=== PATIENT | male | born 1995 | race Caucasian/White ===

== ENCOUNTER 2019-04-01 18:55 | Emergency (ER) | payer OTHER, BC ==
[~2019-04-01] VITALS: Ht 177.8 cm; Wt 71.0 kg
[~2019-04-01 18:55] MED LIST: FLO0.4C PO; HYDR1TAB PO; IBUP-1984 PO; NO HOME MEDS
[2019-04-01 18:59] VITALS: BP 122/84
[2019-04-01] MEDS ORDERED: HYDROcodone/acetaminophen 5mg/325mg tablet PO ONE (20:40)
[2019-04-01] MEDS ORDERED: CLOT30CR TOP (21:23)
[2019-04-01] MEDS ORDERED: CYCL-1 PO (21:39)
[2019-04-01] MEDS ORDERED: LIDO700A32 TOP (21:39)
[2019-04-01] MEDS ORDERED: HYDR-3965 PO (21:39)
== END 2019-04-01 21:57 | disposition home or self-care (01) ==
LOC: ER 18:55
DX: M54.2 Cervicalgia (principal); M25.511 Pain in right shoulder; M25.512 Pain in left shoulder; N20.0 Calculus of kidney; M54.6 Pain in thoracic spine; F12.10 Cannabis abuse, uncomplicated; F15.10 Other stimulant abuse, uncomplicated; V43.53XA Car driver injured in collision with pick-up truck in traffic accident, initial encounter; Y93.89 Activity, other specified; Y92.488 Other paved roadways as the place of occurrence of the external cause; Y99.8 Other external cause status
CPT/HCPCS: 70450; 71045; 72125; 72128; 73030; 99284

== ENCOUNTER 2020-01-03 23:27 | Inpatient (IN) | payer BC, OTHER ==
[~2020-01-03] VITALS: Ht 177.8 cm; Wt 75.0 kg
[~2020-01-03 23:27] MED LIST changes: +CLOT30CR TOP; +CYCL-1 PO; +LIDO700A32 TOP
[2020-01-03] MEDS ORDERED: normal saline 1000ML IV soln IVB ONE (23:35)
[2020-01-03] MEDS ORDERED: ondansetron/PF 4mg/2ml inj IV ONE (23:35)
[2020-01-04 00:03] LABS: BASOPHILS % (AUTO) 0.4 % (0-1); EOSINOPHILS % (AUTO) 0.3 % (0-6); HEMATOCRIT 47.7 % (42.0-52.0); HEMOGLOBIN 16.5 g/dl (14.0-17.9); LYMPHOCYTES # (AUTO) 1.4 X10'3 (1.1-4.8); LYMPHOCYTES % (AUTO) 12.9 % (21-51); MEAN CORPUSCULAR HEMOGLOBIN 31.7 PG (27.0-31.0); MEAN CORPUSCULAR HGB CONC 34.6 g/dL (33.0-36.5); MEAN CORPUSCULAR VOLUME 91.7 FL (78-98); MEAN PLATELET VOLUME 7.9 FL (7.4-10.4); MONOCYTES # (AUTO) 0.6 X10'3 (0-0.9); MONOCYTES % (AUTO) 5.6 % (2-12); NEUTROPHILS # (AUTO) 8.5 X10'3 (1.8-7.7); NEUTROPHILS % (AUTO) 80.8 % (42-75); PLATELET COUNT 264 X10'3 (140-440); RED CELL DISTRIBUTION WIDTH 12.9 % (11.5-14.5); WHITE BLOOD COUNT 10.5 X10'3 (4.5-11.0)
[2020-01-04] MEDS: morphine 4 MG/ML inj SYRINge IV PRN ×2 (00:07→00:47)
[2020-01-04 00:08] LABS: ALANINE AMINOTRANSFERASE 24 U/L (12-78); ALBUMIN 4.5 G/DL (3.4-5.0); ALBUMIN/GLOBULIN RATIO 1.6 (1.1-1.5); ALKALINE PHOSPHATASE 70 IU/L (46-116); ANION GAP 8 (8-16); ASPARTATE AMINO TRANSFERASE 19 U/L (10-37); BILIRUBIN,TOTAL 1.7 MG/DL (0.1-1.0); BLOOD UREA NITROGEN 8 MG/DL (7-18); BUN/CREATININE RATIO 5.8 (5.4-32.0); CALCIUM 9.5 MG/DL (8.5-10.1); CHLORIDE 103 MMOL/L (99-107); CREATININE 1.37 MG/DL (0.60-1.10); GLUCOSE 146 MG/DL (70-104); LIPASE 85 U/L (73-393); POTASSIUM 3.6 MMOL/L (3.5-5.1); SODIUM 139 MMOL/L (135-145); TOTAL CARBON DIOXIDE 28.4 MMOL/L (24-32); TOTAL PROTEIN 7.4 G/DL (6.4-8.2); eGFR 63 ML/MIN
[2020-01-04] MEDS ORDERED: ondansetron/PF 4mg/2ml inj IV ONE (01:20)
[2020-01-04] MEDS ORDERED: tamsulosin 0.4mg capsule PO STA (01:59)
[2020-01-04] MEDS ORDERED: normal saline 1000ml 1,000 ML IV SCH (02:26)
[2020-01-04] MEDS ORDERED: acetaminophen 325mg tablet PO PRN (02:30)
[2020-01-04] MEDS ORDERED: magnesium 4gm in 100ml NS 100 ML IV PRN (02:30)
[2020-01-04] MEDS ORDERED: potassium CL 10mEq/100ml bag 100 ML IV PRN ×2 (02:30)
[2020-01-04] MEDS ORDERED: magnesium hydroxide 30ml (MOM) UD suspension PO PRN (02:30)
[2020-01-04] MEDS ORDERED: magnesium 2GM in 50ml NS 50 ML IV PRN (02:30)
[2020-01-04] MEDS ORDERED: potassium Cl 20 mEq SR tablet PO PRN ×2 (02:30)
[2020-01-04] MEDS ORDERED: mag hydrox/Alum hydrox/simeth 30ml oral suspension PO PRN (02:30)
[2020-01-04] MEDS ORDERED: ondansetron/PF 4mg/2ml inj IV PRN (02:30)
[2020-01-04] MEDS ORDERED: magnesium Cl slow-release 64mg tablet PO PRN (02:30)
[2020-01-04] MEDS ORDERED: morphine 2 MG/ML inj. syringe IV PRN (02:30)
[2020-01-04] MEDS ORDERED: proCHLORperazine 10 MG/2 ml inj IV PRN (03:15)
[2020-01-04 04:33] VITALS: BP 117/87
--- NOTE | 2020-01-04 06:11 | NUR ---
Patient in room [facility]. I have received report from pravin haines and had the opportunity to ask questions and assume patient care.
--- NOTE | 2020-01-04 06:40 | NUR ---
Problems reprioritized. Patient report given, questions answered & plan of care reviewed with SAVITA. Addendum: 01/04/20 at 0640 by William Wilkinson RN Amended: Links added.
--- NOTE | 2020-01-04 06:50 | NUR ---
Patient in room [facility]. I have received report from Jimmy NIELSON and had the opportunity to ask questions and assume patient care.
[2020-01-04 08:00] VITALS: BP 108/61
[2020-01-04] MEDS ORDERED: K and/or MAG REPLACEMENT MC SCH (08:00)
[2020-01-04] MEDS ORDERED: LORazepam 2 mg/ml vial IV PRN (09:55)
[2020-01-04] MEDS ORDERED: LORazepam 2 mg/ml vial IV ONE (10:15)
--- NOTE | 2020-01-04 12:00 | NUR ---
Patient in room [facility]. I have received report from Ginny Hernandez and had the opportunity to ask questions and assume patient care.
--- NOTE | 2020-01-04 12:10 | NUR ---
Student documentation: I have reviewed all interventions, assessments performed and documented by Ginny CAO
--- NOTE | 2020-01-04 13:20 | NUR ---
Patient was uncoorperative to check pupils and did not respond when asked r/t to ignoring commmands. Addendum: 01/04/20 at 1338 by Lisa REYES Amended: Links added.
--- NOTE | 2020-01-04 13:27 | NUR ---
Patient was uncooperative and would not sit up nor roll over to auscultate postier long sounds. Addendum: 01/04/20 at 1338 by Lisa REYES Amended: Links added.
--- NOTE | 2020-01-04 13:31 | NUR ---
Patient was awake but refused to answer when asked about bowel patterns. Addendum: 01/04/20 at 1338 by Lisa REYES Amended: Links added.
--- NOTE | 2020-01-04 14:22 | NUR ---
patient appeared very rude and uncooperative with care using many swear words . Seen by Dr Bush and Dr Su, chose out of three options presented by Dr uS to be seen as outpatient. patient does not appear to be in pain, but was medicated this am x1 with Ativan for severe anxiety, see EMAR. Mother present through the night and left 1300hrs. patient observed to be extremely rude to mother , mother jonathan in tears repeatedly. Patient encouraged to speak more appropriately to medical personnel, and to family. patient non compliant .Dc home via private car with family member in stable condition.
--- NOTE | 2020-01-04 14:49 | NUR ---
All discharge instructions were given to patient by Dr. Su and Dr. Bush. Patient was stable and discharged home with family member. Addendum: 01/04/20 at 1452 by Lisa REYES Amended: Links added.
== END 2020-01-04 14:20 | disposition home or self-care (01) | DRG 694 ==
LOC: ER 23:27 → SUR 3N 01-04 02:26 → UNDOADMIN 01-04 02:31 → SUR 3N 01-04 03:00 → CMPBEDREQ 01-04 03:15 → UNDODISIN 01-04 14:20
PROVIDERS: ADMIT Family Medicine; ATTEND Family Medicine
DX: N13.2 Hydronephrosis with renal and ureteral calculous obstruction (principal); F12.90 Cannabis use, unspecified, uncomplicated; N17.9 Acute kidney failure, unspecified; F15.90 Other stimulant use, unspecified, uncomplicated; F17.210 Nicotine dependence, cigarettes, uncomplicated; F41.9 Anxiety disorder, unspecified; R00.0 Tachycardia, unspecified
CPT/HCPCS: 36415; 74018; 74176; 80053; 83690; 85025; 96374; 96375; 96376; 99285; G0378; J2060; J2270; J2405; J7030

== ENCOUNTER 2020-01-27 14:13 | Emergency (ER) | payer BC ==
[~2020-01-27] VITALS: Ht 177.8 cm; Wt 74.0 kg
[2020-01-27] MEDS ORDERED: normal saline 1000ML IV soln IVB ONE ×2 (14:30→15:30)
[2020-01-27] MEDS ORDERED: ketorolac trometh. 30mg/ml inj. IV ONE (14:30)
--- NOTE | 2020-01-27 14:35 | NUR ---
Patient aware that we need a urine sample from him. Pt states that he is not able to obtain one at this time.
--- NOTE | 2020-01-27 14:43 | NUR ---
csr technician at bedside.
[2020-01-27 14:46] LABS: BASOPHILS % (AUTO) 0.2 % (0-1); EOSINOPHILS % (AUTO) 0.2 % (0-6); HEMATOCRIT 46.3 % (42.0-52.0); HEMOGLOBIN 15.5 g/dl (14.0-17.9); LYMPHOCYTES # (AUTO) 0.8 X10'3 (1.1-4.8); LYMPHOCYTES % (AUTO) 6.5 % (21-51); MEAN CORPUSCULAR HEMOGLOBIN 30.9 PG (27.0-31.0); MEAN CORPUSCULAR HGB CONC 33.4 g/dL (33.0-36.5); MEAN CORPUSCULAR VOLUME 92.4 FL (78-98); MEAN PLATELET VOLUME 7.8 FL (7.4-10.4); MONOCYTES # (AUTO) 0.5 X10'3 (0-0.9); MONOCYTES % (AUTO) 4.2 % (2-12); NEUTROPHILS # (AUTO) 11.1 X10'3 (1.8-7.7); NEUTROPHILS % (AUTO) 88.9 % (42-75); PLATELET COUNT 266 X10'3 (140-440); RED BLOOD COUNT 5.01 X10'6 (4.70-6.10); WHITE BLOOD COUNT 12.5 X10'3 (4.5-11.0)
[2020-01-27] MEDS ORDERED: morphine 4 MG/ML inj SYRINge IV ONE (14:50)
[2020-01-27] MEDS ORDERED: NAPR-56 PO (14:51)
[2020-01-27] MEDS ORDERED: HYDR-4353 PO (14:51)
[2020-01-27] MEDS ORDERED: ondansetron/PF 4mg/2ml inj IV ONE (15:05)
--- NOTE | 2020-01-27 15:10 | NUR ---
relieving RN for break, pt is resting quietly on bed, has been medicated per MD order
[2020-01-27 15:20] LABS: ALANINE AMINOTRANSFERASE 41 U/L (12-78); ALBUMIN 4.1 G/DL (3.4-5.0); ALBUMIN/GLOBULIN RATIO 1.5 (1.1-1.5); ALKALINE PHOSPHATASE 72 IU/L (46-116); ANION GAP 5 (8-16); ASPARTATE AMINO TRANSFERASE 27 U/L (10-37); BILIRUBIN,TOTAL 0.8 MG/DL (0.1-1.0); BLOOD UREA NITROGEN 12 MG/DL (7-18); BUN/CREATININE RATIO 9.8 (5.4-32.0); CHLORIDE 105 MMOL/L (99-107); CREATININE 1.23 MG/DL (0.60-1.10); GLUCOSE 140 MG/DL (70-104); POTASSIUM 4.2 MMOL/L (3.5-5.1); SODIUM 140 MMOL/L (135-145); TOTAL CARBON DIOXIDE 30.3 MMOL/L (24-32); TOTAL PROTEIN 6.9 G/DL (6.4-8.2); eGFR 72 ML/MIN
--- NOTE | 2020-01-27 16:05 | NUR ---
Pt still unable to obtain urine sample. Pt has urinal at bedside.
--- NOTE | 2020-01-27 16:30 | NUR ---
Pt attempted to urinate even though he didn't feel like he needed to. Pt will return to the ED if he is not able to urinate at home.
[2020-01-27 16:35] VITALS: BP 134/70
--- NOTE | 2020-01-27 16:52 | NUR ---
Pt is scheduled to f/u with his PCP this next week and will provide a urine sample at that time. Pt was contacted via telephone by BIN Olivas.
== END 2020-01-27 16:39 | disposition home or self-care (01) ==
LOC: ER 14:14
DX: N20.0 Calculus of kidney (principal); D72.829 Elevated white blood cell count, unspecified; F12.90 Cannabis use, unspecified, uncomplicated; F15.90 Other stimulant use, unspecified, uncomplicated; Z72.89 Other problems related to lifestyle; Z79.899 Other long term (current) drug therapy
CPT/HCPCS: 36415; 76775; 80053; 85025; 96374; 96375; 99284; J1885; J2270; J2405; J7030

== ENCOUNTER 2020-03-09 05:36 | Day surgery (SDC) | payer BC ==
[2020-03-02 15:06] LABS: BASOPHILS % (AUTO) 0.5 % (0-1); EOSINOPHILS # (AUTO) 0.1 X10'3 (0-0.9); EOSINOPHILS % (AUTO) 0.9 % (0-6); LYMPHOCYTES # (AUTO) 1.6 X10'3 (1.1-4.8); MEAN CORPUSCULAR HEMOGLOBIN 30.9 PG (27.0-31.0); MEAN CORPUSCULAR HGB CONC 33.6 g/dL (33.0-36.5); MEAN CORPUSCULAR VOLUME 92.1 FL (78-98); MEAN PLATELET VOLUME 7.8 FL (7.4-10.4); MONOCYTES # (AUTO) 0.3 X10'3 (0-0.9); MONOCYTES % (AUTO) 4.8 % (2-12); NEUTROPHILS # (AUTO) 4.9 X10'3 (1.8-7.7); NEUTROPHILS % (AUTO) 70.8 % (42-75); PRE OP HEMATOCRIT 46.2 % (42.0-52.0); PRE OP HEMOGLOBIN 15.5 g/dL (14.0-17.9); PRE OP PLATELET COUNT 273 X10'3 (140-440); RED BLOOD COUNT 5.02 X10'6 (4.70-6.10); RED CELL DISTRIBUTION WIDTH 12.9 % (11.5-14.5)
[2020-03-02 15:25] LABS: ALBUMIN 4.2 G/DL (3.4-5.0); ALBUMIN/GLOBULIN RATIO 1.5 (1.1-1.5); ALKALINE PHOSPHATASE 77 IU/L (46-116); BLOOD UREA NITROGEN 15 MG/DL (7-18); BUN/CREATININE RATIO 12.6 (5.4-32.0); CALCIUM 9.2 MG/DL (8.5-10.1); CHLORIDE 104 MMOL/L (99-107); CREATININE 1.19 MG/DL (0.60-1.10); PRE OP ALT 26 U/L (30-65); PRE OP ANION GAP 5 (8-16); PRE OP AST 22 U/L (10-37); PRE OP BILIRUB, TOTAL 1.4 MG/DL (0.0-1.0); PRE OP GLUCOSE 95 MG/DL (70-104); PRE OP POTASSIUM 3.6 MMOL/L (3.4-5.1); PRE OP SODIUM 140 MMOL/L (135-145); TOTAL CARBON DIOXIDE 30.8 MMOL/L (24-32); eGFR 74 ML/MIN
[~2020-03-09] VITALS: Ht 177.8 cm; Wt 72.8 kg
[2020-03-09] VITALS (19 sets, daily range): BP systolic 100–145; BP diastolic 59–93
[~2020-03-09 05:36] MED LIST changes: -CLOT30CR TOP; -CYCL-1 PO; -FLO0.4C PO; +GENTAMICIN IV ONE; -HYDR1TAB PO; -IBUP-1984 PO; -LIDO700A32 TOP; +NORMAL SALINE IV ONE; +ampicillin inj 2 GM in normal saline 100ml IV soln 100 ML IV ONE; +famotidine 20mg tablet PO ONE; +ringers solution, lacted 1,000 ML IV SCH
[2020-03-09] MEDS ORDERED: LIDOcaine 1% (10mg/ml) 2ml vial ONE (05:50)
[2020-03-09] MEDS ORDERED: iohexol 300 MG/1 ML 50ml polymer ONE (06:54)
[2020-03-09] MEDS ORDERED: methylene blue (5mg/ml) 50mg/10ml ampul IV ONE (06:54)
[2020-03-09] MEDS: terbinafine cream 30gm TP SCH ×2 (07:05→20:00)
--- NOTE | 2020-03-09 07:05 | NUR ---
LAMISIL CREAM TO BILAT FEET PER DR HULL ORDER. CREAM WOULD NOT SCAN ON EMAR.
[2020-03-09] MEDS ORDERED: midazolam 2 mg/2 ml injection ONE ×2 (07:10→07:23)
[2020-03-09] MEDS ORDERED: fentaNYL /PF 50mcg/ml 5ml ampule ONE (07:10)
[2020-03-09] MEDS ORDERED: rocuronium 10mg/ml inj IV ONE (07:11)
[2020-03-09] MEDS ORDERED: propofol inj 20 ML IV ONE (07:11)
[2020-03-09] MEDS ORDERED: ringers solution, lacted 1,000 ML IV SCH (07:17)
[2020-03-09] MEDS ORDERED: sevoflurane 250ml liquid IH ONE (07:18)
[2020-03-09] MEDS ORDERED: proCHLORperazine 10 MG/2 ml inj IV PRN (07:20)
[2020-03-09] MEDS ORDERED: ondansetron/PF 4mg/2ml inj IV PRN ×2 (07:20→10:30)
[2020-03-09] MEDS ORDERED: meperidine/PF 25mg/ml syringe IV PRN ×2 (07:20)
[2020-03-09] MEDS ORDERED: morphine 2 MG/ML inj. syringe IV PRN (07:20)
[2020-03-09] MEDS ORDERED: dexamethasone sod phosphate 4mg/ml inj. ONE (07:31)
[2020-03-09] MEDS ORDERED: sugammadex 200mg/2ml injection IV ONE (10:08)
--- NOTE | 2020-03-09 10:14 | NUR ---
Received from OR via [email or web address] , accompanied by Anesthesiologist ANJELICA and report given by Anesthesiolgist. PATIENT WITH 20G PIV IN RIGHT HAND. VSS. PAINFUL AND ATTEMPTING TO GET OFF [employer]. CURSING WILDLY AND THRASHING ON [email or web address]. PATIENT MEDICATED FOR PAIN AND NAUSEA. SECURITY CALL FOR SAFETY. Addendum: 03/09/20 at 1041 by Mukesh Cantu RN, RN Amended: Links added.
[2020-03-09] MEDS: meperidine/PF 25mg/ml syringe IV PRN ×2 (10:24→10:33)
[2020-03-09] MEDS ORDERED: CADD PCA waste documentation MC PRN (10:30)
[2020-03-09] MEDS ORDERED: naloxone 0.4 mg/ml inj IV PRN (10:30)
[2020-03-09] MEDS: morphine 4 MG/ML inj SYRINge IV PRN ×2 (10:32→10:44)
[2020-03-09] MEDS: potassium cl 20mEq in 1/2 NS 1,000 ML IV SCH ×2 (10:50→15:17)
[2020-03-09] MEDS: HYDROmorphone/NS 1 mg/ml CADD 50 ML IV SCH ×8 (11:13→22:30)
--- NOTE | 2020-03-09 11:15 | NUR ---
Report received from FABRICATION MACHINE OPERATORMukesh.
--- NOTE | 2020-03-09 11:34 | NUR ---
Dc to floor to room where they were hooked to vitals and RN notified patient has arrived. Bed low, call light within reach, 2-3 rails up, vss, belongings placed in room. Patient has met criteria for transfer to floor. Patient vss. PaTIENT WITH CADD PUMP IN HAND AND REINSTRUCTED ON ITS USE FOR PAIN CONTROL. Transferred via GURNEY TO A BED WHERE HE WAS PASSIVELY TRANSFERED X4 PEOPLE. CARE TURNED OVER TO RN. Addendum: 03/09/20 at 1139 by Mukesh Farrell - NAGA RN Amended: Links added.
[2020-03-09] MEDS: LORazepam 2 mg/ml vial IV PRN (15:17)
--- NOTE | 2020-03-09 18:45 | NUR ---
Problems reprioritized. Patient report given, questions answered & plan of care reviewed with NAGA Bullock & Ayala RN.
--- NOTE | 2020-03-09 19:37 | NUR ---
Patient in room [facility]. I have received report from Radha NIELSON and had the opportunity to ask questions and assume patient care.
[2020-03-10] MEDS: HYDROmorphone/NS 1 mg/ml CADD 50 ML IV SCH ×6 (01:00→11:00)
[2020-03-10] MEDS: LORazepam 2 mg/ml vial IV PRN ×2 (01:34→10:08)
[2020-03-10] MEDS: potassium cl 20mEq in 1/2 NS 1,000 ML IV SCH ×3 (01:48→18:01)
--- NOTE | 2020-03-10 02:30 | NUR ---
administered the pt Ativan. I discussed the Ativan with the pt before i administered the medication. after I administered the ativan, the pt told me that he gets angry when he takes ativan. I told the pt that to tell us before we administer the medication, and that he can refuse the medication. I made a note on the status board as an adverse reaction. I will monitor the pt. pt asked about getting an opioid to help with pain. i explained to the pt that he was on a Dilaudid CADD and he had to push the button. I have explained that the pt must push the CADD button to get pain medication throughout the shift. The pt has been sleeping
[2020-03-10 03:00] VITALS: BP 122/69
--- NOTE | 2020-03-10 03:00 | NUR ---
I checked on the pt and reminded him to use his CADD for Dilaudid. The pt used the CADD button and stated that the ativan "really helped him to relax" and that he was feeling "much better". pt was resting comfortably
[2020-03-10 05:11] LABS: BASOPHILS % (AUTO) 0.2 % (0-1); EOSINOPHILS % (AUTO) 0 % (0-6); HEMATOCRIT 44.3 % (42.0-52.0); HEMOGLOBIN 14.8 g/dl (14.0-17.9); LYMPHOCYTES # (AUTO) 1.1 X10'3 (1.1-4.8); LYMPHOCYTES % (AUTO) 8.8 % (21-51); MEAN CORPUSCULAR HEMOGLOBIN 30.8 PG (27.0-31.0); MEAN CORPUSCULAR HGB CONC 33.3 g/dL (33.0-36.5); MEAN CORPUSCULAR VOLUME 92.5 FL (78-98); MONOCYTES # (AUTO) 0.8 X10'3 (0-0.9); MONOCYTES % (AUTO) 6.5 % (2-12); NEUTROPHILS # (AUTO) 10.7 X10'3 (1.8-7.7); NEUTROPHILS % (AUTO) 84.5 % (42-75); PLATELET COUNT 259 X10'3 (140-440); RED BLOOD COUNT 4.79 X10'6 (4.70-6.10); RED CELL DISTRIBUTION WIDTH 13.1 % (11.5-14.5); WHITE BLOOD COUNT 12.6 X10'3 (4.5-11.0)
[2020-03-10 05:20] LABS: ALBUMIN 3.7 G/DL (3.4-5.0); ANION GAP 7 (8-16); BLOOD UREA NITROGEN 15 MG/DL (7-18); BUN/CREATININE RATIO 11.7 (5.4-32.0); CALCIUM 8.8 MG/DL (8.5-10.1); CHLORIDE 103 MMOL/L (99-107); CREATININE 1.28 MG/DL (0.60-1.10); GLUCOSE 93 MG/DL (70-104); POTASSIUM 4.1 MMOL/L (3.5-5.1); SODIUM 138 MMOL/L (135-145); TOTAL CARBON DIOXIDE 27.8 MMOL/L (24-32); eGFR 68 ML/MIN
--- NOTE | 2020-03-10 06:10 | NUR ---
Patient in room [facility]. I have received report from Ara RN & Ayala RN and had the opportunity to ask questions and assume patient care.
--- NOTE | 2020-03-10 06:29 | NUR ---
Problems reprioritized. Patient report given, questions answered & plan of care reviewed with Radha RN.
[2020-03-10 06:30] VITALS: BP 125/72
[2020-03-10] MEDS: acetaminophen 1,000mg/100ml IV 100 ML IV PRN ×2 (07:02→14:51)
--- NOTE | 2020-03-10 07:04 | NUR ---
Reassessment not done on tylenol 1000mg IV due to administered yesterday not this AM, but observed this AM that med was not scanned in for administration yesterday.
[2020-03-10 11:00] VITALS: BP 113/66
[2020-03-10] MEDS ORDERED: HYDROcodone/acetaminophen 5mg/325mg tablet PO PRN ×2 (11:25)
[2020-03-10] MEDS ORDERED: HYDR-4383 PO (11:39)
[2020-03-10] MEDS ORDERED: CADD PCA waste documentation MC PRN (12:30)
[2020-03-10] MEDS ORDERED: HYDROmorphone 1 mg/ml syringe IV PRN (17:05)
[2020-03-10 18:00] VITALS: BP 132/82
[2020-03-10] MEDS: HYDROcodone/acetaminophen 10/325mg tab PO PRN ×2 (18:01→23:00)
--- NOTE | 2020-03-10 18:55 | NUR ---
Problems reprioritized. Patient report given, questions answered & plan of care reviewed with Yessy Krishnamurthy RN.
--- NOTE | 2020-03-10 18:56 | NUR ---
Patient in room [facility]. I have received report from SHA NIELSON and had the opportunity to ask questions and assume patient care.
[2020-03-11] VITALS: BP 119/79
[2020-03-11] MEDS: potassium cl 20mEq in 1/2 NS 1,000 ML IV SCH (01:22)
--- NOTE | 2020-03-11 06:15 | NUR ---
Patient in room [facility]. I have received report from Yessy Krishnamurthy RN and had the opportunity to ask questions and assume patient care.
[2020-03-11 06:30] VITALS: BP 130/82
--- NOTE | 2020-03-11 06:30 | NUR ---
Problems reprioritized. Patient report given, questions answered & plan of care reviewed with SHA RN.
[2020-03-11] MEDS ORDERED: magnesium hydroxide 30ml (MOM) UD suspension PO ONE (07:25)
[2020-03-11] MEDS: HYDROcodone/acetaminophen 10/325mg tab PO PRN (07:32)
[2020-03-11] MEDS ORDERED: docusate sod 250mg capsule PO SCH (08:00)
--- NOTE | 2020-03-11 10:00 | NUR ---
DC inst provided to pt. IV DC'd, tip intact. All belongings sent w/pt. WC to front lobby.
== END 2020-03-11 10:00 | disposition home or self-care (01) ==
LOC: PAS 05:36 → SUR 3N 10:30 → PAS 03-11 10:00
PROVIDERS: ATTEND Urology
DX: N20.0 Calculus of kidney (principal); F17.210 Nicotine dependence, cigarettes, uncomplicated; Z72.89 Other problems related to lifestyle; F12.90 Cannabis use, unspecified, uncomplicated; J45.909 Unspecified asthma, uncomplicated; Z79.01 Long term (current) use of anticoagulants; Z79.899 Other long term (current) drug therapy; Z80.51 Family history of malignant neoplasm of kidney; Z11.59 Encounter for screening for other viral diseases
CPT/HCPCS: 36415; 50080; 71045; 71046; 80048; 80053; 85025; 85610; 85730; 86885; 86900; 86901; 87635; 93005; C1729; C1758; C1769; C1894; C2617; C2628; C9399; J0131; J0290; J1100; J1580; J2001; J2060; J2175; J2250; J2270; J2405; J2704; J3010; J7030; J7120; Q9967; Q9968; 49405; A4338; A4355; A4357; A4402; A4618; A6449; A7000; G0378; J3480

== ENCOUNTER 2021-01-03 06:35 | Emergency (ER) | payer BC, OTHER ==
[~2021-01-03] VITALS: Ht 177.8 cm; Wt 71.3 kg
[~2021-01-03 06:35] MED LIST changes: -GENTAMICIN IV ONE; +HYDR-4383 PO; -NORMAL SALINE IV ONE; -ampicillin inj 2 GM in normal saline 100ml IV soln 100 ML IV ONE; -famotidine 20mg tablet PO ONE; -ringers solution, lacted 1,000 ML IV SCH
[2021-01-03] MEDS ORDERED: ondansetron/PF 4mg/2ml inj IV ONE (06:50)
[2021-01-03] MEDS ORDERED: ketorolac trometh. 30mg/ml inj. IV ONE (06:50)
[2021-01-03] MEDS ORDERED: normal saline 1000ML IV soln IVB ONE ×3 (06:50→09:35)
[2021-01-03] MEDS ORDERED: morphine 4 MG/ML inj SYRINge IV PRN (06:50)
[2021-01-03 07:16] LABS: BASOPHILS % (AUTO) 0.3 % (0-1); EOSINOPHILS # (AUTO) 0.1 X10'3 (0-0.9); EOSINOPHILS % (AUTO) 0.7 % (0-6); HEMATOCRIT 44.8 % (42.0-52.0); HEMOGLOBIN 14.9 g/dl (14.0-17.9); LYMPHOCYTES # (AUTO) 1.4 X10'3 (1.1-4.8); LYMPHOCYTES % (AUTO) 11.3 % (21-51); MEAN CORPUSCULAR HEMOGLOBIN 30.9 PG (27.0-31.0); MEAN CORPUSCULAR HGB CONC 33.3 g/dL (33.0-36.5); MEAN CORPUSCULAR VOLUME 92.7 FL (78-98); MONOCYTES # (AUTO) 0.4 X10'3 (0-0.9); MONOCYTES % (AUTO) 3.5 % (2-12); NEUTROPHILS # (AUTO) 10.6 X10'3 (1.8-7.7); NEUTROPHILS % (AUTO) 84.2 % (42-75); PLATELET COUNT 289 X10'3 (140-440); RED BLOOD COUNT 4.83 X10'6 (4.70-6.10); WHITE BLOOD COUNT 12.5 X10'3 (4.5-11.0)
[2021-01-03 07:30] LABS: ALANINE AMINOTRANSFERASE 63 U/L (12-78); ALBUMIN 4.1 G/DL (3.4-5.0); ALBUMIN/GLOBULIN RATIO 1.4 (1.1-1.5); ALKALINE PHOSPHATASE 93 IU/L (46-116); ANION GAP 9 (8-16); ASPARTATE AMINO TRANSFERASE 40 U/L (10-37); BILIRUBIN,TOTAL 0.8 MG/DL (0.1-1.0); BLOOD UREA NITROGEN 17 MG/DL (7-18); BUN/CREATININE RATIO 13.3 (5.4-32.0); CALCIUM 9.6 MG/DL (8.5-10.1); CHLORIDE 104 MMOL/L (99-107); CREATININE 1.28 MG/DL (0.60-1.10); GLUCOSE 151 MG/DL (70-104); LIPASE 365 U/L (73-393); POTASSIUM 4.4 MMOL/L (3.5-5.1); SODIUM 141 MMOL/L (135-145); TOTAL CARBON DIOXIDE 27.8 MMOL/L (24-32); eGFR 68 ML/MIN
--- NOTE | 2021-01-03 08:30 | NUR ---
PT REFUSES UA AT THIS TIME. 2ND L KILEY HUNG
[2021-01-03 08:31] VITALS: BP 121/81
--- NOTE | 2021-01-03 09:50 | NUR ---
PT ATTEMPTED TO VOID. UNABLE AT THIS TIME. PT DENIES PAIN WITH URINATION. 3RD LNS HUNG. PT WILL ATTEMT TO VOID WHEN ABLE
[2021-01-03 10:38] LABS: CLARITY,URINE SLIGHTLY CLOUDY (Clear); COLOR,URINE YELLOW (Yellow); GLUCOSE, URINE NEGATIVE (Neg); KETONES,URINE NEGATIVE (Neg); LEUKOCYTE ESTERASE ,URINE NEGATIVE (Neg); NITRITES, URINE NEGATIVE (Neg); OCCULT BLOOD,URINE MODERATE (Neg); PROTEIN,URINE NEGATIVE (Neg); UROBILINOGEN,URINE 0.2 E.U/dL (0.2-1.0)
[2021-01-03 10:41] LABS: UA COLLECTION TYPE VOIDED
[2021-01-03 11:08] LABS: COARSE GRANULAR CAST 0-3 /LPF (NEGATIVE); HYALINE CASTS 0-3 /LPF (NEGATIVE)
[2021-01-03 11:09] LABS: CELLULAR CAST 0-4 /LPF (NEGATIVE)
[2021-01-03 11:10] LABS: BACTERIA,URINE FEW /HPF (Neg); FINE GRANULAR CAST 0-3 /LPF (NEGATIVE); RBC,URINE 20-50 /HPF (0-2); SQUAMOUS EPITHELIAL CELL,UR FEW /LPF (FEW); WBC,URINE 0-4 /HPF (0-4)
[2021-01-03] MEDS ORDERED: HYDR-3972 PO (11:14)
== END 2021-01-03 11:35 | disposition home or self-care (01) ==
LOC: ER 06:35
DX: N20.0 Calculus of kidney (principal); R10.84 Generalized abdominal pain; F17.200 Nicotine dependence, unspecified, uncomplicated; F12.90 Cannabis use, unspecified, uncomplicated; F15.90 Other stimulant use, unspecified, uncomplicated; F19.90 Other psychoactive substance use, unspecified, uncomplicated; Z87.440 Personal history of urinary (tract) infections; Z72.89 Other problems related to lifestyle; Z79.899 Other long term (current) drug therapy
CPT/HCPCS: 36415; 74176; 80053; 81001; 83690; 85025; 96361; 96374; 96375; 99284; J1885; J2270; J2405; J7030

== ENCOUNTER 2022-03-15 10:41 | Emergency (ER) | payer OTHER ==
[~2022-03-15] VITALS: Ht 177.8 cm; Wt 77.3 kg
[~2022-03-15 10:41] MED LIST changes: +HYDR-3972 PO
[2022-03-15 11:23] VITALS: BP 122/86
[2022-03-15] MEDS ORDERED: morphine 4 MG/ML inj SYRINge IV PRN (12:30)
[2022-03-15] MEDS ORDERED: normal saline 1000ML IV soln IVB ONE (12:30)
[2022-03-15] MEDS ORDERED: ondansetron/PF 4mg/2ml inj IV ONE (12:30)
[2022-03-15 12:43] LABS: CLARITY,URINE SLIGHTLY CLOUDY (Clear); COLOR,URINE YELLOW (Yellow); GLUCOSE, URINE NEGATIVE (Neg); KETONES,URINE NEGATIVE (Neg); LEUKOCYTE ESTERASE ,URINE TRACE (Neg); NITRITES, URINE NEGATIVE (Neg); OCCULT BLOOD,URINE LARGE (Neg); PROTEIN,URINE 100 mg/dl (Neg); UA COLLECTION TYPE CLN CATCH MIDSTREAM; UROBILINOGEN,URINE 0.2 E.U/dL (0.2-1.0)
[2022-03-15 12:52] LABS: BACTERIA,URINE FEW /HPF (Neg); MUCUS STRANDS FEW /LPF (Neg); RBC,URINE 50-100 /HPF (0-2); SQUAMOUS EPITHELIAL CELL,UR NONE SEEN /LPF (FEW); WBC,URINE 0-4 /HPF (0-4)
--- NOTE | 2022-03-15 12:52 | NUR ---
ivp x2 given by fire extinguisher charger.
--- NOTE | 2022-03-15 12:58 | NUR ---
pt to ct with tech
[2022-03-15] MEDS ORDERED: sulfamethoxazole/trimethoprim DS (800/160mg) tablet PO ONE (13:10)
--- NOTE | 2022-03-15 13:19 | NUR ---
po med given
[2022-03-15] MEDS ORDERED: tamsulosin 0.4mg capsule PO STA (14:41)
[2022-03-15] MEDS ORDERED: normal saline 1000ml 1,000 ML IV ONE (14:45)
[2022-03-15] MEDS ORDERED: ketorolac trometh. 30mg/ml inj. IV ONE (14:45)
--- NOTE | 2022-03-15 15:03 | NUR ---
po med given 1000ml nacl bolas started ivp given by ANTHONY Villar
[2022-03-15 15:12] LABS: BASOPHILS % (AUTO) 0.3 % (0-1); EOSINOPHILS % (AUTO) 0.3 % (0-6); HEMATOCRIT 44.2 % (42.0-52.0); LYMPHOCYTES # (AUTO) 0.9 X10'3 (1.1-4.8); LYMPHOCYTES % (AUTO) 7.3 % (21-51); MEAN CORPUSCULAR HEMOGLOBIN 30.8 PG (27.0-31.0); MEAN CORPUSCULAR HGB CONC 33.9 g/dL (33.0-36.5); MEAN CORPUSCULAR VOLUME 90.8 FL (78-98); MEAN PLATELET VOLUME 7.9 FL (7.4-10.4); MONOCYTES # (AUTO) 0.7 X10'3 (0-0.9); MONOCYTES % (AUTO) 5.6 % (2-12); NEUTROPHILS # (AUTO) 11.2 X10'3 (1.8-7.7); NEUTROPHILS % (AUTO) 86.5 % (42-75); PLATELET COUNT 239 X10'3 (140-440); RED BLOOD COUNT 4.87 X10'6 (4.70-6.10); RED CELL DISTRIBUTION WIDTH 12.5 % (11.5-14.5)
[2022-03-15 15:31] LABS: ALANINE AMINOTRANSFERASE 22 U/L (12-78); ALBUMIN/GLOBULIN RATIO 1.5 (1.1-1.5); ALKALINE PHOSPHATASE 57 IU/L (46-116); ANION GAP 9 (8-16); ASPARTATE AMINO TRANSFERASE 18 U/L (10-37); BLOOD UREA NITROGEN 12 MG/DL (7-18); BUN/CREATININE RATIO 10.8 (5.4-32.0); CHLORIDE 106 MMOL/L (99-107); CREATININE 1.11 MG/DL (0.60-1.10); GLUCOSE 108 MG/DL (70-104); POTASSIUM 3.9 MMOL/L (3.5-5.1); SODIUM 140 MMOL/L (135-145); TOTAL CARBON DIOXIDE 25.5 MMOL/L (24-32); TOTAL PROTEIN 6.6 G/DL (6.4-8.2); eGFR 79 ML/MIN
[2022-03-15] MEDS ORDERED: SULF1TAB49 PO (15:42)
[2022-03-15] MEDS ORDERED: IBUP-1986 PO (15:42)
[2022-03-15] MEDS ORDERED: ONDA4TAB12 PO (15:42)
[2022-03-15] MEDS ORDERED: HYDR-3965 PO (15:42)
[2022-03-15] MEDS ORDERED: FLO0.4C PO (15:42)
[2022-03-15] MEDS ORDERED: HYDROcodone/acetaminophen 10/325mg tab PO ONE (16:00)
--- NOTE | 2022-03-15 16:13 | NUR ---
po med given
== END 2022-03-15 16:17 | disposition home or self-care (01) ==
LOC: ER 10:41
DX: N20.0 Calculus of kidney (principal); N39.0 Urinary tract infection, site not specified; R31.9 Hematuria, unspecified; R10.32 Left lower quadrant pain; F12.90 Cannabis use, unspecified, uncomplicated; F15.90 Other stimulant use, unspecified, uncomplicated; F19.90 Other psychoactive substance use, unspecified, uncomplicated; Z87.442 Personal history of urinary calculi; Z98.890 Other specified postprocedural states; Z72.89 Other problems related to lifestyle; Z79.899 Other long term (current) drug therapy
CPT/HCPCS: 36415; 74176; 80053; 81001; 85025; 87088; 96361; 96374; 96375; 99284; J1885; J2270; J2405; J7030